=== PATIENT | female | born 1995 | race African-American/Black ===

== ENCOUNTER 2019-04-20 13:42 | Emergency (ER) | payer BC ==
--- OUTSIDE RECORDS SUMMARY | 2019-04-20 14:05 | XMS REPORT | Continuity of Care Document ---
:1995 Author Organization [facility] Address [address] [place] [address] Phone Care Team Providers Name Role Phone Blessing Veliz FIRE WARDEN, [place] Unavailable Unavailable Allergies, Adverse Reactions, Alerts Substance Reaction Status shellfish derived Active amoxicillin Active Medications Medication Instructions Dosage Effective Dates Status Comments (start - stop) Nexplanon 68 mg Insert in clinic - Active subdermal implant LISINOPRIL (unknown Not Available - Active strength) MAXALT (unknown Not Available - Active strength) Problems Condition Effective Dates (start - Clinical Status Comments stop) Human immunodeficiency virus [HIV] - counseling Encntr screen for infections w sexl mode of transmiss Encounter for oth screening for malignant neoplasm of breast 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) w/o abn findings Encounter for screening for malignant neoplasm of cervix Encounter for oth general cnsl and advice on contraception Human immunodeficiency virus [HIV] - counseling Encounter for test, result negative Encounter for screening for human - immunodeficiency virus Enctr for init prescription of implntbl subdermal contracep Encntr screen for infections w sexl mode of transmiss Enctr srvlnc implantable subdermal contraceptive Procedures Procedure Date PREVENTIVE COUNSELING, Under 8 Minutes N.GONORRHOEAE, DNA, AMP PROB CHYLMD DNA, AMP PROBE SUREPATH TRICHOMONAS VAGIN, DIR PROBE PREV VISIT, EST, AGE 18-39 BLOOD PRESSURE Height/Weight BREAST EXAM OTHER Medical Services Contraceptive Special Assets Officer.Svc. Other Special Assets Officer.Svc. STI Special Assets Officer.Svc. Breast Self Exam Results Test Name Date and Time Measure Units Reference Range Abnormal Flag Status Comments Panel Description: C trach DNA XXX Ql PCR Final Swab CT - Negative N Final Performed by:
CDD Vaginal 00:00:00 ([id number])

Panel Description: Amplified GC - Vaginal Final Swab GC - Negative N Final : Vaginal 00:00:00 No

Performed by:
CDD ([id number])

Advance Directives Directive Yes / No Effective Date File Name No information Encounters Encounter Practice Location Reason(s) Diagnoses Date Provider Providers Description For Visit Copied on Encounter PREV VISIT, [facility] Sep-1 [place] Referring EST, [facility] [place] Person immunodeficiency 1 [place] Provider: 18-39 [place] Visit virus [HIV] 9 Sueane. Shabnam Plascencia (chief counselingEncntr [address] [place], [address] complaint) screen for [place], [place] infections w sexl [address], [address] [facility], mode of [place], [place], [place], transmissEncounter [facility], [id number], [place] [address] [place], [address]. for malignant tel:[phone] tel:[phone] tel:[phone] neoplasm of [phone] breast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) w/o abn findingsEncounter for screening for malignant neoplasm of cervixEncounter for oth general cnsl and advice on contraception [facility] Mar-2 [place] Referring [facility] [place] immunodeficiency [phone] [place]. Provider: [facility] virus [HIV] 9 [address] Plascencia counselingEncounter [place], [address] [place], [address] test, [address], [place] result [place], St, St, [place], negativeEncounter [place], [facility] [place], [place] [address], [place], [address]. [id number], human [place]. [place] immunodeficiency tel:[phone] virusEnctr for init [id number] prescription of implntbl subdermal contracepEncntr screen for infections w sexl mode of transmissEnctr srvlnc implantable subdermal contraceptive Family History Family Member Diagnosis Age At Onset 1st degree relative No hx of venous thromboembolism Father Polycystic kidney disease 1st degree relative No hx of osteoporosis Brother Polycystic kidney disease 1st degree relative No hx of cancer of breast, colon, endometrium or ovary 1st degree relative No hx of coronary heart disease (female <65, male <55) Immunizations Vaccine Date Status Comments No information Payers Payer name Insurance type Covered alliance party ID Authorization(s) [facility] [id number] Social History Type Description Quantity Date Captured Comments Alcohol Use Details Unknown Caffeine Use Details Unknown Tobacco Use Status Current non-smoker Smoking Status Never smoker Non-Smoking Tobacco : No Details Available : No Details Available 2018 Use Details Sex Female Vital Signs Date / Height Weight BMI Pulse Blood Temperature Respiratory Body Head BMI Pulse Inhaled Time: Rate Pressure Rate Surface Circumference percentile Ox Ox Area 67.00 190.00 29.7 110/80 -2019 in lbs 6 mm[Hg] 1:28 kg/m PM eter (2) Chief Complaint And Reason For Visit Most recent encounter only, dated '04/18/2019 13:30'. Well Person Visit ( chief complaint) Reason For Referral Reason For Referral No information Plan Of Treatment Date Type Action Status No information History Of Present Illness Encounter Date Complaint History Of Present Illness No information Functional Status Date Functional Assessment No information Medications Administered Medication Instructions Dosage Effective Dates (start - stop) Status Comments No information Instructions Date Instruction Additional Information No information Assessments Type Assessment Date assessment Human immunodeficiency virus [HIV] counseling assessment Encntr screen for infections w sexl mode of transmiss assessment Encounter for oth screening for malignant neoplasm of breast assessment 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
--- OUTSIDE RECORDS SUMMARY | 2019-04-20 14:05 | XMS REPORT | Continuity of Care Document ---
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 [phone] Medicine Problems Description No Information Available Social History Type Date Description Comments Sex Unknown Tobacco Use Start: Unknown Never Smoked Cigarettes Smoking Status Reviewed: 04/05/19 Never Smoked Cigarettes ETOH Use Denies alcohol use Tobacco Use Start: Unknown Patient has never smoked Recreational Drug Use Denies Drug Use Exercise Type/Frequency Exercises rarely Allergies, Adverse Reactions, Alerts Active Allergies Reaction Severity Comments Date Peanuts/Nuts 01/17/2019 Amoxicillin 01/17/2019 Shellfish-Derived Products 01/17/2019 Medications Active Medications SIG Qnty Indications Ordering Provider Date Lisinopril 1 tab by mouth 90tabs I10 Sarah 01/17/2019 2.5mg Tablets every daily MD Logan Iron 65 MG one a day Unknown Antihistamine 10 MG one a day Unknown Nexplanon 5 year Unknown 68mg Implant control implant. Immunizations Description No Information Available Vital Signs Date Vital Result Comment 04/05/2019 10:22am Height 66 inches 5'6" Weight 188.00 lb Heart Rate 80 /min BP Systolic Sitting 146 mmHg right arm reg cuff BP Diastolic Sitting 97 mmHg right arm reg cuff O2 % BldC Oximetry 98 % room air BMI (Body Mass Index) 30.3 kg/m2 01/17/2019 10:03am Height 66 inches 5'6" Weight 190.00 lb Heart Rate 80 /min BP Systolic Sitting 171 mmHg Left arm. Right arm: 138/92 BP Diastolic Sitting 122 mmHg Left arm. Right arm: 138/92 Body Temperature 98.8 F O2 % BldC Oximetry 98 % Ra BMI (Body Mass Index) 30.7 kg/m2 Results Test Date Facility Test Result H/L Range Note Urine Culture And 01/19/2019 [facility] Urine Culture SEE RESULT [address] [place] [address] [phone] Urine Metanephrines 01/19/2019 [facility] Urine 151 mcg/24h [address] [place] [address] [phone] Urine Normetanephrine 329 mcg/24h 3 Urine Total Metanephrines 480 mcg/24h 4 Urine Collection Duration 24 h Urine Volume 3500 mL 5 Laboratory test finding 01/19/2019 [facility] Cortisol 10.63 g /dL [address] [place] [address] [phone] TSH (Thyroid Stim Horm) 1.38 mcIU/mL Normal 0.34-5.60 Free T4 (Free Thyroxine) 1.10 ng/dL Normal 0.61-1.12 Metanephrines 01/19/2019 [facility] Plasma Free 0.29 <0.[address] Normetanephrine nmol/[place] [address] [phone] Plasma Free Metanephrine <0.20 nmol/L <0.50 7 Laboratory test 01/19/2019 [facility] Transferrin 305 mg/dL Normal 203-[address] [place] [address] [phone] Ferritin 11.6 ng/mL Normal 11-307 Aldosterone 5.6 ng/dL <=21 8 Renin 11 ng/mL/h 9 Iron & Iron Binding 01/19/2019 [facility] Iron 75 g/dL Normal 50-[address] [place] [address] [phone] Unsaturated Iron Binding < 412 g/dL Total Iron Binding Capacity 427 g/dL Normal 250-450 % Iron Saturation 18 % Normal 15-55 Notus/Lambda Free 01/19/2019 [facility] Notus Free 1.22 mg/dL 10 Light Chains Ser [address] [place] [address] [phone] Lambda Free Light Chain 1.07 mg/dL 11 Notus/Lambda Free Light Chain 1.14 12 Urine Protein Elctrophoresis 01/19/2019 [facility] Albumin 58 % 13 (RDM) [address] [place], [place] [phone] Alpha-1 Globulin 6 % 14 Alpha-2 Globulin 8 % 15 Beta Globulin 16 % 16 Gamma Globulin 13 % 17 Albumin/Globulin Ratio 1.37 % Impression See Comment 18 Total Protein(Pep) Urine 42 mg/dL 19 Protein 01/19/2019 [facility] Total 7.4 g/dL 6.3 - Electrophoresis [address] Protein(Pep) 7.9 [place], [place] [id number] [phone] Albumin 3.8 g/dL 3.4-4.7 Alpha-1 Globulin 0.2 g/dL 0.1-0.3 Alpha-2 Globulin 1.1 g/dL Abnormal 0.6-1.0 Beta Globulin 1.0 g/dL 0.7-1.2 Gamma Globulin 1.3 g/dL 0.6-1.6 Albumin/Globulin Ratio 1.06 Impression See Comment 20 Urine Microalbumin 01/19/2019 [facility] Ur Microalbumin 115.2 mg/L Random [address] (mg/L) [place], [place] [id number] [phone] Urine Creatinine 185.53 mg/dL Urine Microalbumin/Creatinine 62.0 High <31 Laboratory test 01/19/2019 [facility] Urine Creatinine 183.15 mg /dL finding [address] Concentration [place], [place] [address] [phone] Creatinine 24HR 01/19/2019 [facility] Urine Collection 24 hr Urine [address] Time [place], [place] [address] [phone] Urine Total Volume 3500 mL Urine Creatinine/24 Hour 1912.40 mg/24Hr High 600-1800 Urinalysis Profile 01/19/2019 [facility] Urine Color Yellow [address] [place] [address] [phone] Urine Appearance Cloudy Urine Specific Ward 1.017 Normal 1.010-1.030 Urine pH 6.0 Normal 5-9 Urine Urobilinogen Negative Negative Urine Ketones Negative Negative Urine Protein 1+(30 mg/dL) Abnormal Negative Urine Leukocytes 2+ Abnormal Negative Urine Blood 3+ Abnormal Negative Urine Nitrite Negative Negative Urine Bilirubin Negative Negative Urine Glucose Negative Negative Urine White Blood Cell 2+(11-20/hpf) Abnormal Absent Urine Red Blood Cell 2+(6-10/hpf) Abnormal Absent Urine Bacteria 1+ Abnormal Absent Urine Squamous Epithelial Cell Present Abnormal Absent Laboratory test 01/19/2019 [facility] Urine TP 7 mg/dL finding [address] [place] [address] [phone] Total Protein 01/19/2019 [facility] Urine Total 245 High 0-16 24HR Urine [address] Protein/24HR mg/24Hr 5 [place] [address] [phone] Creatinine 01/19/2019 [facility] Creatinine, Serum 0.83 Normal 0.[address] mg/dL -0.9 [place] [address] 5 [phone] Creatinine Clearance 536 mL/min High 88-128 Urine Collection Time 24 hr Urine Total Volume 3500 mL Comp Metabolic 01/19/2019 [facility] Sodium 141 mmol/L Normal 135-[address] [place] [address] [phone] Potassium 4.0 mmol/L Normal 3.5-5.0 Chloride 105 mmol/L Normal 101-111 Co2 Carbon Dioxide 27 mmol/L Normal 22-32 Anion Gap 9 mmol/L Normal 2-11 Glucose 103 mg/dL High 70-100 Blood Urea Nitrogen 8 mg/dL Normal 6-24 Creatinine 0.83 mg/dL Normal 0.51-0.95 BUN/Creatinine Ratio 9.6 Normal 8-20 Calcium 10.0 mg/dL Normal 8.6-10.3 Total Protein 7.5 g/dL Normal 6.4-8.9 Albumin 4.5 g/dL Normal 3.2-5.2 Globulin 3.0 g/dL Normal 2-4 Albumin/Globulin Ratio 1.5 Normal 1-3 Total Bilirubin 0.60 mg/dL Normal 0.2-1.0 Alkaline Phosphatase 36 U/L Normal 34-104 Alt 17 U/L Normal 7-52 Ast 15 U/L Normal 13-39 Egfr Non- 86.0 >60 Egfr 104.0 >60 21 CBC Auto 01/19/2019 [facility] White Blood 6.3 10^3/uL Normal 3.5-10.[address] [place] [address] [phone] Red Blood Count 5.51 10^6/uL High 3.70-4.87 Hemoglobin 14.9 g/dL Normal 12.0-16.0 Hematocrit 46 % Normal 35-47 Mean Corpuscular Volume 83 fL Normal 80-97 Mean Corpuscular Hemoglobin 27 pg Normal 27-31 Mean Corpuscular HGB Conc 33 g/dL Normal 31-36 Red Cell Distribution Width 15 % Normal 10-15 Platelet Count 296 10^3/uL Normal 150-450 Mean Platelet Volume 9.5 fL Normal 7.4-10.4 Abs Neutrophils 3.1 10^3/uL Normal 1.5-7.7 Abs Lymphocytes 2.6 10^3/uL Normal 1.0-4.8 Abs Monocytes 0.4 10^3/uL Normal 0-0.8 Abs Eosinophils 0.1 10^3/uL Normal 0-0.6 Abs Basophils 0.1 10^3/uL Normal 0-0.2 Abs Nucleated RBC 0.0 10^3/uL Granulocyte % 49.2 % Lymphocyte % 41.2 % Monocyte % 6.1 % Eosinophil % 2.2 % Basophil % 1.3 % Nucleated Red Blood Cells % 0.1 Laboratory test 01/19/2019 [facility] Anti Nuclear 0.2 U [address] [place] [address] [phone] Order 01/17/2019 [facility] Echocardiogram <pending> [address] [place] [address] [phone] 1 SEE RESULT BELOW Name: ROSSY DELUCA : [address]: Sarah Ford MD Acct: [id number] Unit: [id number] AGE: 23 Location: LAB Re01/19/19 SEX: F Status: REG REF SPEC: [id number] MATT: 01/19/19 [facility] DR: Sarah Ford MD REQ: [id number] RECD: 01/19/19 STATUS: COMP _ SOURCE: URINE SPDESC: ORDERED: Urine Culture Procedure Result Reported Site Urine Culture Final 01/20/19- 1358 ML No growth of clinically significant organisms * ML - Main Lab . END OF REPORT DEPARTMENT OF PATHOLOGY, [address] [place] [address] Mir Colbert M.D. Director [facility] # [id number] 2 REFERENCE VALUE 30-180 (Normotensive) <400 (Hypertensive) 3 REFERENCE VALUE 103-390 (Normotensive) <900 (Hypertensive) 4 REFERENCE VALUE 145-510 (Normotensive) <1300 (Hypertensive) 5 ADDITIONAL INFORMATION This test was developed and its performance characteristics determined by [facility] in a manner consistent with CLIA requirements. This test has not been cleared or approved by the U.S. Food and Drug Administration. Test Performed by: [facility] [employer] - [address] [address] 6 AM 8.7-22.4 PM <10 7 ADDITIONAL INFORMATION This test was developed and its performance characteristics determined by [facility] in a manner consistent with CLIA requirements. This test has not been cleared or approved by the U.S. Food and Drug Administration. Test Performed by: [facility] [employer] - [facility] [employer] [address] [place] [address] 8 ADDITIONAL INFORMATION Reference range for patients 11 years and older is based on upright A.M. collection from subjects without sodium restrictions. This test was developed and its performance characteristics determined by [facility] in a manner consistent with CLIA requirements. This test has not been cleared or approved by the U.S. Food and Drug Administration. Test Performed by: [facility] [employer] - [facility] [address] [place] [address] 9 REFERENCE VALUE (Peripheral vein specimen) Na-deplete, upright: Mean: 10.8 Range: 2.9-24 Na-replete, upright: Mean: 1.9 Range: < or =0.6-4.3 ADDITIONAL INFORMATION Testing performed by Liquid Chromatography-Tandem Mass Spectrometry (LC-MS/MS). This test was developed and its performance characteristics determined by [facility] in a manner consistent with CLIA requirements. This test has not been cleared or approved by the U.S. Food and Drug Administration. Test Performed by: [facility] - [facility] [employer] [address] [place] [address] 10 REFERENCE VALUE 0.3300-1.94 11 REFERENCE VALUE 0.5700-2.63 12 REFERENCE VALUE 0.2600-1.65 Test Performed by: [facility] - [address] [address] 13 24 mg/dL 14 3 mg/dL 15 3 mg/dL 16 7 mg/dL 17 5 mg/dL 18 All fractions present, no apparent M-spike. Insufficient urine volume submitted to maximally concentrate urine. If clinically indicated, submit new sample with adequate volume. Due to the elevated protein, suggest monoclonal protein study (MPSU) if clinically indicated. 19 ADDITIONAL INFORMATION On 02/01/2017 the total protein assay method changed resulting in approximately a 15% increase in protein values. Test Performed by: [address] [address] Test Performed by: [address] [address] 20 RESULT: No apparent monoclonal protein on serum electrophoresis. Test Performed by: [place] [address] 21 Because ethnic data is not always readily available, this report includes an eGFR for both -Americans and non- Americans. The National Kidney Disease Education Program (NKDEP) does not endorse the use of the MDRD equation for patients that are not between the ages of 18 and 70, are , have extremes of body size, muscle mass, or nutritional status, or are non- or non-. According to the National Kidney Foundation, irrespective of diagnosis, the stage of the disease is based on the level of kidney function: Stage Description GFR(mL/min/1.73 m(2)) 1 Kidney damage with normal or decreased GFR 90 2 Kidney damage with mild decrease in GFR 60-89 3 Moderate decrease in GFR 30-59 4 Severe decrease in GFR 15-29 5 Kidney failure <15 (or dialysis) 22 REFERENCE VALUE <=1.0 (Negative) Test Performed by: [address] [address] Procedures Description No Information Available Medical Devices Description No Information Available Encounters Type Date Location Provider Dx Diagnosis Office Visit 01/17/2019 [facility] Nephrology Sarah Ford, I10 Essential ( primary) 10:00a hypertension Q61.2 Polycystic kidney, adult type D50.9 Iron deficiency anemia, unspecified Assessments Date Code Description Provider 01/17/2019 I10 Essential (primary) hypertension Sarah Ford MD 01/17/2019 Q61.2 Polycystic kidney, adult type Sarah Ford MD 01/17/2019 D50.9 Iron deficiency anemia, unspecified Sarah Ford MD Plan of Treatment Future Appointment(s):05/08/2019 2:30 pm - Sarah Ford MD at [facility] Ne[facility] Functional Status Description No Information Available Mental Status Description No Information Available Referrals Description No Information Available
--- NOTE | 2019-04-20 15:00 | ED ---
Abdominal Pain/Female - HPI Summary HPI Summary: 23 year old F presenting to [facility] complains of waxing and waning umbilical pain since several months ago, worse since 08:0 this morning. Patient reports bright red stools at 08:00 this morning. Patient reports nausea. Patient denies painful bowel movements, dark and tarry stools. The patient rates the pain 0/10 in severity. Symptoms aggravated by bending forward, bending backwards, cough, laughing, lifting herself up from a sitting position. Symptoms alleviated by nothing. Patient states she takes lisinopril and Maxalt. Patient states she recently moved back to [place] from [employer] and has not established a primary care provider yet. - History of Current Complaint Chief Complaint: EDAbdPain Stated Complaint: BLOOD IN STOOL AND ABDOMINAL PAIN PER PT Time Seen by Provider: 04/20/19 14:51 Hx Obtained From: Patient Onset/Duration: Lasting Weeks, Still Present, Worse Since - last night Severity Currently: None Pain Intensity: 0 Pain Scale Used: 0-10 Numeric Location: Umbilical Aggravating Factor(s): Other: - bending forward, bending backwards, cough, laughing, lifting herself up from a sitting position Alleviating Factor(s): Nothing Associated Signs and Symptoms: Positive: Negative - painful bowel movements, dark and tarry stools, Blood in Stool, Nausea Allergies/Adverse Reactions: Allergies Allergy/AdvReac Type Severity Reaction Status Date / Time avocado Allergy Hives Verified 04/20/19 14:53 peanut Allergy Anaphylatic Verified 04/20/19 14:53 Shock Penicillins Allergy Hives Verified 04/20/19 14:53 Home Medications: Home Medications Lisinopril [Lisinopril 2.5 MG-] 5 mg PO DAILY 04/20/19 [History Confirmed ] Rizatriptan (NF) [Maxalt(NF)] 5 mg PO DAILY PRN 04/20/19 [History Confirmed ] PMH/Surg Hx/FS Hx/Imm Hx Cardiovascular History: Reports: Hx Hypertension History: Reports: Other Problems/Disorders - polycystic kidney disease Sensory History: Reports: Hx Contacts or Glasses Opthamlomology History: Reports: Hx Contacts or Glasses Neurological History: Reports: Hx Migraine - Surgical History Surgery Procedure, Year, and Place: none Infectious Disease History: No Infectious Disease History: Denies: Traveled Outside the [place] in Last 30 Days - Family History Known Family History: Positive: Hypertension Negative: Cardiac Disease, Diabetes - Social History Alcohol Use: None Hx Substance Use: No Substance Use Type: Reports: None Hx Tobacco Use: No Smoking Status (MU): Never Smoked Tobacco Review of Systems Negative: Fever Gastrointestinal: Negative - painful bowel movements, dark and tarry stools Positive: Nausea, Other - umbilical pain, bright red stools All Other Systems Reviewed And Are Negative: Yes Physical Exam - Summary Physical Exam Summary: Appearance: The patient is well-nourished in no acute distress and in no acute pain. Skin: The skin is warm and dry, and skin color reflects adequate perfusion. HEENT: The head is normocephalic and atraumatic. The pupils are equal and reactive. The conjunctivae are clear and without drainage. Nares are patent and without drainage. Mouth reveals moist mucous membranes, and the throat is without erythema and exudate. The external ears are intact. The ear canals are patent and without drainage. The tympanic membranes are intact. Neck: The neck is supple with full range of motion and non-tender. There are no carotid bruits. There is no neck vein distension. Respiratory: Chest is non-tender. Lungs are clear to auscultation and breath sounds are symmetrical and equal. Cardiovascular: Heart is regular rate and rhythm. There is no murmur or rub auscultated. There is no peripheral edema and pulses are symmetrical and equal. Abdomen: The abdomen is soft and non-tender. There are normal bowel sounds heard in all four quadrants and there is no organomegaly palpated. Musculoskeletal: There is no back tenderness noted. Extremities are non-tender with full range of motion. There is good capillary refill. There is no peripheral edema or calf tenderness elicited. Neurological: Patient is alert and oriented to person, place and time. The patient has symmetrical motor strength in all four extremities. Cranial nerves are grossly intact. Deep tendon reflexes are symmetrical and equal in all four extremities. Psychiatric: The patient has an appropriate affect and does not exhibit any anxiety or depression. Triage Information Reviewed: Yes Vital Signs On Initial Exam: Initial Vitals Temp Pulse Resp BP Pulse Ox 98.2 F 72 16 153/93 100 04/20/19 13:50 04/20/19 13:50 04/20/19 13:50 04/20/19 13:50 04/20/19 13:50 Vital Signs Reviewed: Yes Diagnostics - Vital Signs Vital Signs Temp Pulse Resp BP Pulse Ox 04/20/19 13:50 98.2 F 72 16 153/93 100 - Laboratory Result Diagrams: 04/20/19 15:10 04/20/19 15:10 Lab Statement: Any lab studies that have been ordered have been reviewed, and results considered in the medical decision making process. Re-Evaluation - Re-Evaluation First Eval Re-Evaluation Time: 17:49 Comment: patient is agreeable to discharge Abdominal Pain Fem Course/Dx - Course Course Of Treatment: Ms. Deluca came in complaining that she's been having some epigastric pain for couple of weeks on and off. It does seem to be aggravated by eating. Today she saw some blood in her stool about 5 hours prior to presentation. She has not had any continuing bleeding and did not have any here. Her labs are unremarkable and she had some mild epigastric tenderness. I recommended that we start a PPI but her mother had some ranitidine at home and wanted to try that. I thought that was reasonable choice and recommended follow-up with her PCP. - Diagnoses Provider Diagnoses: Epigastric pain Discharge ED - Sign-Out/Discharge Documenting (check all that apply): Patient Departure - Discharge Patient Received Moderate/Deep Sedation with Procedure: No - Discharge Plan Condition: Stable Disposition: HOME Patient Education Materials: Epigastric Pain (ED) Referrals: Kalpesh Blum MD [Medical Doctor] - 2 Days Additional Instructions: Take ranitidine as needed. Follow up with Dr. Blum in 2-3 days. Return to the Emergency Department for new or worsening symptoms. - Billing Disposition and Condition Condition: STABLE Disposition: Home - Attestation Statements Document Initiated by Scribe: Yes Documenting Scribe: Ny Yost Provider For Whom Miladibe is Documenting (Include Credential): Rowdy Gao MD Scribe Attestation: I, Ny Yost, scribed for Rowdy Gao MD on 04/20/19 at [id number]. Scribe Documentation Reviewed: Yes Provider Attestation: The documentation as recorded by the Ny parrish accurately reflects the service I personally performed and the decisions made by me, Rowdy Gao MD Status of Scribe Document: Viewed
[2019-04-20 15:33] LABS: ABS Basophils 0.1 10^3/ul (0-0.2); ABS Eosinophils 0.1 10^3/ul (0-0.6); ABS Lymphocytes 2.9 10^3/ul (1.0-4.8); ABS Monocytes 0.5 10^3/ul (0-0.8); ABS Neutrophils 3.9 10^3/ul (1.5-7.7); Eosinophil % 1.4 %; Hematocrit 41 % (35-47); Hemoglobin 13.6 g/dL (12.0-16.0); Lymphocyte % 38.7 %; Mean Corpuscular HGB Conc 34 g/dL (31-36); Mean Corpuscular Hemoglobin 29 pg (27-31); Mean Corpuscular Volume 86 fL (80-97); Mean Platelet Volume 8.9 fL (7.4-10.4); Nucleated Red Blood Cells % 0.1; Platelet Count 272 10^3/uL (150-450); Red Blood Count 4.73 10^6 /uL (3.70-4.87); Red Cell Distribution Width 14 % (10-15); White Blood Count 7.5 10^3/uL (3.5-10.8)
[2019-04-20 16:05] LABS: ALT 11 U/L (7-52); AST 15 U/L (13-39); Albumin 4.4 g/dL (3.2-5.2); Albumin/Globulin Ratio 1.6 (1-3); Alkaline Phosphatase 44 U/L (34-104); Anion Gap 9 mmol/L (2-11); BUN/Creatinine Ratio 21.4 (8-20); Blood Urea Nitrogen 15 mg/dL (6-24); C Reactive Protein 5.24 mg/L (<8.01); CO2 Carbon Dioxide 23 mmol/L (22-32); Calcium 9.1 mg/dL (8.6-10.3); Chloride 106 mmol/L (101-111); EGFR African American 126.6 (>60); EGFR Non-African American 104.6 (>60); Globulin 2.8 g/dL (2-4); Glucose 72 mg/dL (70-100); Potassium 3.8 mmol/L (3.5-5.0); Sodium 138 mmol/L (135-145); Total Protein 7.2 g/dL (6.4-8.9)
[2019-04-20 16:08] LABS: HCG Pregnancy < 0.60 mIU/mL
[2019-04-20 16:24] LABS: HIV 4th Generation Nonreactive (Nonreactive)
[2019-04-20 16:59] LABS: Urine Appearance Clear; Urine Bacteria Absent (Absent); Urine Bilirubin Negative (Negative); Urine Blood 2+ (Negative); Urine Color Straw; Urine Glucose Negative (Negative); Urine Ketones Negative (Negative); Urine Nitrite Negative (Negative); Urine Protein Negative (Negative); Urine Red Blood Cell 1+(3-5/hpf) (Absent); Urine Specific Gravity 1.005 (1.010-1.030); Urine Squamous Epithelial Cell Present (Absent); Urine Urobilinogen Negative (Negative); Urine White Blood Cell Trace(0-5/hpf) (Absent)
[2019-04-20 17:58] VITALS: BP 148/74
== END 2019-04-20 18:00 | disposition home or self-care (01) ==
LOC: ED 13:42
DX: R10.13 Epigastric pain (principal); I10 Essential (primary) hypertension; Z79.899 Other long term (current) drug therapy; Z88.0 Allergy status to penicillin
CPT/HCPCS: 36415; 80053; 81003; 81015; 83605; 83690; 84702; 85025; 86140; 87086; 87389; 99282